=== PATIENT | female | born 1970 | race Caucasian/White ===

== ENCOUNTER 2020-09-20 09:09 | Inpatient (IN) | payer OTHER, SELFPAY ==
[2020-09-20] VITALS (33 sets, daily range): BP systolic 107–167; BP diastolic 59–83; PULSE 63–98; RESP 14–31; TEMP 35.8–37.1; O2SAT 93–100
--- NOTE | 2020-09-20 09:13 | W.ED.GENAD ---
Discharge Plan Disposition Patient [facility] Condition: Good Discharge Details Clinical Impression: Umbilical hernia, incarcerated Admit Date/Time: 09/20/20 15:59 Admit Provider: Kylie Vidal Attending Provider: Kylie Vidal Primary Care Provider: Anne Akers ED Provider: Serge Nuñez Discharge Data Discharge Date/Time-TO BE ENTERED AT DEPARTURE: 09/20/20 12:02 Medical Decision Making <TRISTON Morrison - Last Filed: 09/20/20 11:57> 50-year-old female history of GERD, anemia, asthma, presenting to the ER presenting to the ER with nausea for the last couple days, awoke this morning with severe abdominal pain. She had 1 episode of vomiting. She certainly appears uncomfortable. Examination reveals diffuse abdominal pain however examination is difficult given her body habitus. Differential is broad which includes gastritis, bowel obstruction, hernia, appendicitis, UTI, pyelonephritis, renal stone, biliary colic, etc. Will obtain IV access, give IV fluids, Zofran, morphine, lactic acid, CBC, CMP, urinalysis, urine and lipase. Patient reports nausea improved however the pain has not improved, now given 1 mg IV Dilaudid. Laboratory values are unremarkable for any obvious emergent process. Both her white blood cell count and lactate are unremarkable. Urinalysis reveals greater than 50 white cells however to be contaminated. Will obtain another sample. Repeat urinalysis without obvious signs of infection. Urine culture pending. Patient required a another dose of IV Dilaudid for her ongoing returning discomfort. CT imaging reveals an entrapped bowel loop in a umbilical hernia. Patient will be placed in Trendelenburg and will place ice on her abdomen. Given her evaluation-body habitus, etc., I feel as though it would be difficult to reduce this hernia here in the ER. I have placed a call to our surgical team. I spoke with Dr. Vidal, she reviewed the CT imaging and has set the patient up for surgery today at [address] Peña personally saw the patient, please see his note Medical Records Medical records reviewed: Yes I reviewed the patient's medical records. Imaging Data Radiologic Study: Attestation: I personally reviewed and interpreted this imaging study as follows: Imaging: CT Scan Radiologist's impression: CT abdomen and pelvis with contrast read by radiology as a significant anterior abdominal wall umbilical hernia which contains entrapped bowel loops with some surrounding fluid. Surgical consultation is recommended. There is no high-grade bowel obstruction at this time. Lab Data Lab results reviewed: Yes I reviewed the patient's lab results. Labs: 09/20/20 10:56 Urine - Reflex from Ua Urine Culture - Pending Laboratory Tests Range/Units 09/20/20 09/20/20 09/20/20 09:20 09:20 09:20 WBC (4.4-10.8) 10^3/uL 9.20 RBC (3.93-5.22) 10^6/uL 5.14 Hgb (11.2-15.7) g/dL 13.6 Hct (36.0-46.0) % 43.1 MCV (80-95) fL 83.9 MCH (27.0-33.0) pg 26.5 L MCHC (32.0-36.0) % 31.6 L RDW (11.7-14.6) % 13.5 Plt Count (130-400) 10^3/uL 295 MPV (8.0-11.0) fL 10.8 Immature Gran % 0.4 Neutrophils % 62.8 Lymphocytes % 27.3 Monocytes % 7.0 Eosinophils % 2.2 Basophils % 0.3 Nucleated RBC % % 0 Absolute Neutrophils (1.2-6.7) 10^3/uL 5.78 Absolute Lymphocytes (1.2-3.4) 10^3/uL 2.51 Absolute Monocytes (0.1-0.8) 10^3/uL 0.64 Absolute Eosinophils (0.0-0.7) 10^3/uL 0.20 Absolute Basophils (0.0-0.2) 10^3/uL 0.03 PT (9.3-11.0) sec INR (0.9-1.1) VBG Lactate (0.6-1.4) mmol/L 1.3 Sodium (136-145) mmol/L 137 Potassium (3.5-5.1) mmol/L 3.7 Chloride (98-107) mmol/L 104 Carbon Dioxide (21.0-32.0) mmol/L 24.5 Anion Gap (3-11) mmol/L 8.5 BUN (7-18) mg/dL 12 Creatinine (0.55-1.02) mg/dL 0.82 Estimated GFR/1.73 m2 (mL/min/1.73m2) >= 60.00 Glucose (74-106) mg/dL 116 H Calcium (8.5-10.1) mg/dL 8.8 Total Bilirubin (0.2-1.0) mg/dL 0.5 AST (15-37) U/L 16 ALT (14-59) U/L 30 Alkaline Phosphatase (46-116) U/L 64 Total Protein (6.4-8.2) g/dL 8.0 Albumin (3.4-5.0) g/dL 3.9 Lipase (73-393) U/L 62 Urine Color (Yellow) Urine Clarity (Clear) Urine pH (5-8) Ur Specific [place] (1.005-1.025) Urine Protein (Negative) mg/dL Urine Ketones (Negative) mg/dL Urine Blood (Negative) Urine Nitrite (Negative) Urine Bilirubin (Negative) Urine Urobilinogen (Up TO 0.2) EU/dL Ur Leukocyte Esterase (Negative) Urine RBC (0-2) HPF Urine WBC (0-5) HPF Ur Epithelial Cells (Negative) HPF Urine Crystals (Negative) HPF Urine Bacteria (Negative) HPF Urine Casts (Negative) LPF Urine Mucus (Negative) Urine Other (Negative) Ur Culture Indicated? Urine Glucose (Negative) mg/dL Range/Units 09/20/20 09/20/20 09/20/20 09:20 09:40 10:56 WBC (4.4-10.8) 10^3/uL RBC (3.93-5.22) 10^6/uL Hgb (11.2-15.7) g/dL Hct (36.0-46.0) % MCV (80-95) fL MCH (27.0-33.0) pg MCHC (32.0-36.0) % RDW (11.7-14.6) % Plt Count (130-400) 10^3/uL MPV (8.0-11.0) fL Immature Gran % Neutrophils % Lymphocytes % Monocytes % Eosinophils % Basophils % Nucleated RBC % % Absolute Neutrophils (1.2-6.7) 10^3/uL Absolute Lymphocytes (1.2-3.4) 10^3/uL Absolute Monocytes (0.1-0.8) 10^3/uL Absolute Eosinophils (0.0-0.7) 10^3/uL Absolute Basophils (0.0-0.2) 10^3/uL PT (9.3-11.0) sec 9.9 INR (0.9-1.1) 1.0 VBG Lactate (0.6-1.4) mmol/L Sodium (136-145) mmol/L Potassium (3.5-5.1) mmol/L Chloride (98-107) mmol/L Carbon Dioxide (21.0-32.0) mmol/L Anion Gap (3-11) mmol/L BUN (7-18) mg/dL Creatinine (0.55-1.02) mg/dL Estimated GFR/1.73 m2 (mL/min/1.73m2) Glucose (74-106) mg/dL Calcium (8.5-10.1) mg/dL Total Bilirubin (0.2-1.0) mg/dL AST (15-37) U/L ALT (14-59) U/L Alkaline Phosphatase (46-116) U/L Total Protein (6.4-8.2) g/dL Albumin (3.4-5.0) g/dL Lipase (73-393) U/L Urine Color (Yellow) Yellow Yellow Urine Clarity (Clear) Clear Clear Urine pH (5-8) 5.5 5.0 Ur Specific [place] (1.005-1.025) >= 1.030 H 1.010 Urine Protein (Negative) mg/dL Negative Negative Urine Ketones (Negative) mg/dL Negative Negative Urine Blood (Negative) Trace-intact H Trace-intact H Urine Nitrite (Negative) Negative Negative Urine Bilirubin (Negative) Negative Negative Urine Urobilinogen (Up TO 0.2) EU/dL 0.2 0.2 Ur Leukocyte Esterase (Negative) Negative Negative Urine RBC (0-2) HPF 5-10 H 0-2 Urine WBC (0-5) HPF >50 H 5-10 Ur Epithelial Cells (Negative) HPF Moderate Few Urine Crystals (Negative) HPF Negative Negative Urine Bacteria (Negative) HPF Many Moderate Urine Casts (Negative) LPF Negative Negative Urine Mucus (Negative) Heavy Heavy Urine Other (Negative) Negative Negative Ur Culture Indicated? No/sq. contamination Yes Urine Glucose (Negative) mg/dL Negative Negative <Washington Peña MD - Last Filed: 10/06/20 17:32> Patient seen, examined, and discussed with TRISTON Nuñez. I agree with treatment plan as discussed/documented. Surgical consult initiated by Dr. Vidal with plan to likely operate. HPI <TRISTON Morrison - Last Filed: 09/20/20 11:57> General Mode of arrival: ambulatory. Date/Time Provider Initiated Documentation: 09/20/20 09:10. Limitations to Documentation: no limitations. Information obtained by: patient. HPI Narrative: This is a 50-year-old female with past medical history that includes GERD, anemia, obesity, hyperlipidemia, asthma, cardiomegaly, presenting to the ER for evaluation of abdominal pain. She states that she has felt slightly nauseous for the past couple of days but has been able to eat regularly. She went to bed last night without any pain, will this morning with diffuse abdominal pain, difficult to pinpoint any specific location. She states the pain is moderate-severe, worse with movement. She states that radiate through into her back but not necessarily over to her flank. She did vomit once today. She tells me that she had a normal bowel movement this morning. Denies any obvious blood in her stools or black tarry stools. Patient denies recent sick contacts, bad food exposure, recent antibiotic use. Denies headache, fever, neck pain, chest pain, shortness of breath, diarrhea, constipation, dysuria, hematuria, abnormal vaginal bleeding or discharge. She states that her last menstrual cycle was approximately 1 month ago. She is sexually active with 1 person, her spouse. Denies history of previous abdominal surgeries. She denies alcohol use or smoking. Denies drug use. Related Data Home Medications Medication Instructions Recorded Confirmed cholecalciferol (vitamin D3) 2,000 units PO DAILY 07/11/15 09/20/20 magnesium oxide 500 mg PO DAILY 12/20/15 09/20/20 budesonide-formoterol HFA 160 2 puff INHALATION BID #1 inhaler 11/07/19 09/20/20 mcg-4.5 mcg/actuation aerosol inhaler acetaminophen [Mapap Extra 1,000 mg PO Q6H PRN #30 tab 09/21/20 Strength] docusate sodium [Colace] 100 mg PO BID #30 cap 09/21/20 oxycodone 5 mg PO Q4H PRN PRN #14 tab 09/21/20 Previous Rx's Medication Instructions Recorded budesonide-formoterol HFA 160 2 puff INHALATION BID #1 inhaler 11/07/19 mcg-4.5 mcg/actuation aerosol inhaler acetaminophen [Mapap Extra 1,000 mg PO Q6H PRN #30 tab 09/21/20 Strength] docusate sodium [Colace] 100 mg PO BID #30 cap 09/21/20 oxycodone 5 mg PO Q4H PRN PRN #14 tab 09/21/20 Allergies Allergy/AdvReac Type Severity Reaction Status Date / Time DUST Allergy Unknown Uncoded 10/04/20 13:55 POLLEN EXTRACTS Allergy Unknown Uncoded 10/04/20 13:55 Review of Systems <TRISTON Morrison - Last Filed: 09/20/20 11:57> Constitutional Constitutional: Denies fatigue, Denies fever(s), Denies headache(s) and Denies weakness ENT Ears, Nose, Mouth, and Throat: Denies headache(s) and Denies neck pain Cardiovascular Cardiovascular: Denies chest pain and Denies dyspnea Respiratory Respiratory: Denies cough and Denies dyspnea Gastrointestinal Gastrointestinal: Reports abdominal pain, Denies melena, Denies hematochezia, Denies constipation, Denies diarrhea, Reports nausea and Reports vomiting Genitourinary Genitourinary: Denies abnormal vaginal bleeding, Denies dysuria and Denies vaginal discharge Musculoskeletal Musculoskeletal: Reports back pain, Denies neck pain, Denies numbness and Denies tingling Integumentary/Breasts Skin/Breast: Denies rash Neurologic Neurologic: Denies headache(s), Denies numbness, Denies tingling and Denies weakness Endocrine Endocrine: Denies fatigue PFSH <TRISTON Morrison - Last Filed: 09/20/20 11:57> Medical History (Updated 09/21/20 @ 14:48 by Samantha Nascimento MD) Abdominal pain, epigastric Anemia Asthma PFT's 11/2009-normal Cardiomegaly (09/05/14) CXR-NORMAL ECHO 09/05/14 DR. WONG Depressive disorder GERD (gastroesophageal reflux disease) Hyperlipidemia Increased BMI Irregular periods (07/23/90) Rosacea Vitamin D deficiency (08/28/14) Family History Mother Essential hypertension Heart disease A fib Neoplasm SKIN/FACE Father Essential hypertension Heart disease Aortic stenosis Hyperlipidemia COPD (chronic obstructive pulmonary disease) Sister Diabetes Gestational diabetes Asthma Mild Brother Asthma Childhood Grandfather Heart disease Grandfather Heart disease Stroke Grandmother Essential hypertension Asthma Grandmother Heart disease Hyperlipidemia Brother No problems noted. 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 [employer] Pets and animals: Yes Pets and animals: cat(s) Duration: 15-30 minutes/day Frequency: 3-4 times per week Carmencita/[employer]: [employer] Special carmencita needs: No Seatbelt use: always Do you feel safe at home: Yes Do you feel safe in your relationship?: Yes Exam <TRISTON Morrison - Last Filed: 09/20/20 11:57> Const General: cooperative, healthy appearing, in distress and other (Appears uncomfortable, groaning) Orientation: alert and awake HENMT Head: normal to inspection, normocephalic and atraumatic Eyes General: appearance normal, both eyes and all related structures Conjunctivae: conjunctivae normal Sclera: sclerae normal Neck Neck: normal visual inspection, full ROM, no meningeal signs, trachea midline and supple Resp Effort & Inspection: normal respiratory effort and able to speak in complete sentences Auscultation: clear to auscultation bilaterally Cardio Rate: regular rate Rhythm: regular rhythm GI Inspection: normal to inspection and obesity Palpation: soft, not firm, no guarding, no pulsatile masses and tender (Diffuse, mild) Hogan's sign negative and with no rebound tenderness Auscultation: normal bowel sounds Back/Spine/Pelvis Back: No back tenderness Skin General skin exam: no rashes or lesions noted Neuro General: patient alert, patient awake, moves all extremities and no focal motor deficits Cognition: normal cognition Speech: speech normal Sensory Exam: no sensory deficits noted Extrem General: normal to inspection and full ROM Psych Appearance: grossly normal Mental Status: mental status grossly normal
[2020-09-20 09:36] LABS: Lactate 1.3 mmol/L (0.6-1.4)
[2020-09-20 09:41] LABS: Abs Immature Grans 0.04 10^3/uL (0.0-0.06); Absolute Basophil Count 0.03 10^3/uL (0.0-0.2); Absolute Lymphocyte Count 2.51 10^3/uL (1.2-3.4); Absolute Monocyte Count 0.64 10^3/uL (0.1-0.8); Absolute Neutrophil Count 5.78 10^3/uL (1.2-6.7); Basophils % 0.3; Eosinophils % 2.2; HCT 43.1 % (36.0-46.0); HGB 13.6 g/dL (11.2-15.7); Immature Grans % 0.4; Lymphocytes % 27.3; MCH 26.5 pg (27.0-33.0); MCHC 31.6 % (32.0-36.0); MCV 83.9 fL (80-95); MPV 10.8 fL (8.0-11.0); Neutrophils % 62.8; Nucleated RBC 0 %; Platelet Count 295 10^3/uL (130-400); RBC 5.14 10^6/uL (3.93-5.22); RDW 13.5 % (11.7-14.6); RDW-SD 41.5 fL
[2020-09-20] MEDS: MORPHine 10 MG/ML VIAL 2 MG IVP (09:43)
[2020-09-20] MEDS: Normal Saline 1,000 ML 1000 ML IV ×2 (09:43→10:40)
[2020-09-20] MEDS: Ondansetron 4 MG/2 ML VIAL IVP (09:43)
[2020-09-20] MEDS: Normal Saline Flush 10 ML SYR IVP ×4 (09:44→18:47)
[2020-09-20 09:48] LABS: Prothrombin Time 9.9 sec (9.3-11.0)
[2020-09-20 09:50] LABS: Bilirubin Negative (Negative); Blood Trace-intact (Negative); Clarity Clear (Clear); Glucose Negative (Negative); Ketones Negative (Negative); Leukocyte Esterase Negative (Negative); Nitrite Negative (Negative); Specific Gravity >= 1.030 (1.005-1.025); Urobilinogen 0.2 EU/dL (Up TO 0.2); pH 5.5 (5-8)
[2020-09-20] MEDS: HYDROmorphone 2 MG/ML VIAL 1 MG IVP ×2 (10:02→10:57)
[2020-09-20 10:05] LABS: ALT 30 U/L (14-59); AST 16 U/L (15-37); Albumin 3.9 g/dL (3.4-5.0); Alkaline Phosphatase 64 U/L (46-116); Anion Gap 8.5 mmol/L (3-11); BUN 12 mg/dL (7-18); Bilirubin, Total 0.5 mg/dL (0.2-1.0); CO2 24.5 mmol/L (21.0-32.0); CREATININE 0.82 mg/dL (0.55-1.02); Calcium 8.8 mg/dL (8.5-10.1); Chloride 104 mmol/L (98-107); Glucose 116 mg/dL (74-106); Lipase 62 U/L (73-393); Potassium 3.7 mmol/L (3.5-5.1); Sodium 137 mmol/L (136-145)
[2020-09-20 10:21] LABS: Bacteria Many HPF (Negative); Crystals Negative HPF (Negative); Epithelial Cells Moderate HPF (Negative); Other Cells Negative (Negative); WBC >50 HPF (0-5)
[2020-09-20 10:22] LABS: C & S Indicated? No/Sq. Contamination; Casts Negative LPF (Negative); Mucus Heavy (Negative)
--- NOTE | 2020-09-20 10:37 | DI.CT_ITS ---
EXAM: CT ABDOMEN PELVIS W CLINICAL HISTORY: nausea x 2 days, diffuse pain this a.m.. TECHNIQUE: Imaging Protocol: Axial computed tomography images with coronal and sagittal reformatted images were created and reviewed CONTRAST MATERIAL: Intravenous: Omnipaque 100cc Oral: None COMPARISON: No exams were available for comparison FINDINGS: VISUALIZED LUNG BASES: No nodules nor pleural effusions evident. ABDOMEN: Is no ascites. LIVER: Liver is hypodense implying steatosis. There are no discrete focal hepatic lesions. GALLBLADDER/BILIARY: No obvious gallbladder pathology. CBD is not dilated. PANCREAS: No evidence of pancreatic mass nor dilatation of the pancreatic duct. SPLEEN: Spleen is not enlarged. No obvious intrasplenic lesions. Splenic and portal veins are paten t. ADRENALS: There are no significant adrenal masses. KIDNEYS:Right kidney is unremarkable. Small cyst is noted in the lateral cortex of the left kidney. No solid renal masses. No calculi nor hydronephrosis.. ABDOMINAL AORTA: Abdominal aorta is not enlarged and there is no [id number] adenopat hy. ABDOMINAL WALL/GI: There is an anterior abdominal wall umbilical hernia which contains entrapped eusebio l loop and surrounding streaking. There is no prominent bowel obstruction. No obvious free air. PELVIS: GI: No evidence of appendicitis.No evidence of sigmoid diverticulitis. LYMPH NODES: There is no intrapelvic nor inguinal adenopathy. REPRODUCTIVE: Uterus and adnexal regions appear age-appropriate. No free fluid in the cul-de-sac. URINARY BLADDER: No calculi nor obvious masses evident OSSEOUS: No significant osseous lesions. IMPRESSION: 1. Main finding here is a significant anterior abdominal wall umbilical hernia which contains entrapp ed bowel loops with some surrounding fluid. Surgical consultation is recommended. There is no high- grade bowel obstruction at this time. 2. Hepatic steatosis. No ominous focal hepatic lesions. No ascites. RADIATION DOSE DELIVERED: 1,686.4mGy.cm Total DLP DATA REPOSITORY: All CT scans at this facility are submitted to the National Radiology Data Registry (NRDR) Dose Index Registry (DIR) with the [employer] ([employer]). RADIATION OPTIMIZATION: All CT scans at this facility use at least one of these dose optimization te chniques: automated exposure control; mA and/or kV adjustment per patient size (includes targeted exa ms where dose is matched to clinical indication); or iterative reconstruction.
[2020-09-20] MEDS: Omnipaque 350 MG/ML 100 ML BTL IJ (10:39)
[2020-09-20] MEDS: Normal Saline - Diluent 50 ML VIAL IV (10:40)
[2020-09-20 11:04] LABS: Bilirubin Negative (Negative); Blood Trace-intact (Negative); Clarity Clear (Clear); Glucose Negative (Negative); Ketones Negative (Negative); Leukocyte Esterase Negative (Negative); Nitrite Negative (Negative); Urobilinogen 0.2 EU/dL (Up TO 0.2)
[2020-09-20 11:12] LABS: Bacteria Moderate HPF (Negative); C & S Indicated? Yes; Casts Negative LPF (Negative); Crystals Negative HPF (Negative); Epithelial Cells Few HPF (Negative); Mucus Heavy (Negative); Other Cells Negative (Negative); RBC 0-2 HPF (0-2)
[2020-09-20] MEDS: Lactated Ringers 1,000 ML 120 ML IV (12:44)
--- NOTE | 2020-09-20 13:32 | HPE_ITS ---
Date of service: 09/20/20 Time of Service: 13:32 Assessment and Plan Assessment and plan (1) Umbilical hernia, incarcerated: Status: Acute Assessment and plan: She has an obvious incarceration with bowel. I did review her CT and her CBC ,complete metabolic profile. She does need to go for surgery. I discussed the procedure which she could expect during the procedure, recovery time, and risks. Risks include but are not limited to: Bleeding, infection, pneumonia, blood clots, complications from anesthesia. We may or may not have to do a bowel resection. If we do a bowel resection we cannot place the mesh and the risks of the hernia recurring are high. If we can place the mesh there is always risks of infection or rejection of the mesh and having to mesh removed. There is always risks of chronic pain or chronic numbness. Because of her obesity she has a high risk wound breakdown/ problems and need to heal by secondary intent. She will have drains in place. We will admit her after the procedure. Further recommendations to follow based on findings at the time of surgery. I did a review her care with anesthesia and do feel she is acceptable risk to have her surgery done here at [facility]. She will be admitted post procedure. 50 minutes spent with the patient in preop. Reviewing her CTs her lab work and her medical history in chart. Discussing the case with anesthesia. Discussing the case with the patient and preparing her This document was created using voice activated software and may contain errors (2) GERD (gastroesophageal reflux disease): Status: Chronic Qualifiers: Esophagitis presence: without esophagitis Qualified Code(s): K21.9 - Gastro-esophageal reflux disease without esophagitis (3) Hyperlipidemia: Status: Acute (4) Asthma: Status: Acute History of Present Illness Consults Consult date: 09/20/20 Narrative: Pt not been feeling well for the past 36 hrs. Today she woke up w/ severe pain. She denies any healthy lifting or trauma in the past 24 hrs. She had a L inguinal fixed in the past. +N/V today. No prior surgerys through this area. Last time she had a physical, she was told her there was something funny about the area, but it was nothing to worry about. I think she has had an umbilical hernia for some time. But she has never had any pain or problems with it before. She is not had any prior bowel surgery before. She is not a smoker. She is not diabetic. She has anemia listed on her past medical history. She is not anemic today on her CBC. She has cardiomegaly listed on her past medical history. She did have any echo in 2015 that showed normal size, no hypertrophy and normal function, normal valves. She is not a smoker. She is not diabetic. She does have problems with GERD. The hernia is firm, very painful. There is no erythema. There is no drainage. She has been vomiting today. Is obviously incarcerated and she needs to go for surgery. Right and that is more of a physiological problem. Not an anatomical problem Review of Systems All systems reviewed & are unremarkable except as noted in HPI and below PFSH Family History Mother Essential hypertension Heart disease A fib Neoplasm SKIN/FACE Father Essential hypertension Heart disease Aortic stenosis Hyperlipidemia COPD (chronic obstructive pulmonary disease) Sister Diabetes Gestational diabetes Asthma Mild Brother Asthma Childhood Grandfather Heart disease Grandfather Heart disease Stroke Grandmother Essential hypertension Asthma Grandmother Heart disease Hyperlipidemia Brother No problems noted. 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 [employer] Pets and animals: Yes Pets and animals: cat(s) Duration: 15-30 minutes/day Frequency: 3-4 times per week Carmencita/Denominational: Confucianist Special carmencita needs: No Seatbelt use: always Do you feel safe at home: Yes Do you feel safe in your relationship?: Yes Meds Home Medications and Allergies Home Medications Medication Instructions Recorded Confirmed Type cholecalciferol (vitamin D3) 2,000 units PO DAILY 07/11/15 09/20/20 History magnesium oxide 500 mg PO DAILY 12/20/15 09/20/20 History budesonide-formoterol HFA 160 2 puff INHALATION BID #1 inhaler 11/07/19 09/20/20 Rx mcg-4.5 mcg/actuation aerosol inhaler Allergies Allergy/AdvReac Type Severity Reaction Status Date / Time DUST Allergy Unknown Uncoded 09/20/20 12:16 POLLEN EXTRACTS Allergy Unknown Uncoded 09/20/20 12:16 Exam Const General: cooperative, healthy appearing, comfortable, no acute distress, well developed and well groomed Nutritional Appearance: average body habitus and well nourished Orientation: alert, awake and oriented x3 [facility] Head: normal to inspection, normocephalic and atraumatic Ears: hearing grossly normal bilaterally and external ears normal General nose exam: external nose normal Face and sinus: normal facial exam and sinuses nontender Mouth: oral mucosae normal, lip normal, tongue normal and moist mucous membranes Teeth and gingiva: dentition normal Eyes General: appearance normal, both eyes and all related structures Conjunctivae: conjunctivae normal Sclera: sclerae normal Pupils: PERRL Neck Neck: normal visual inspection and full ROM Chest Chest: normal inspection of the chest Resp Effort & Inspection: normal respiratory effort, able to speak in complete sentences, no cough, no nasal flaring, not tachypneic and no use of accessory muscles Auscultation: clear to auscultation bilaterally, no rales, no rhonchi and no wheezes Cardio Jugular venous pressure: no JVD Rate: regular rate Rhythm: regular rhythm GI Inspection: normal to inspection, no edema, non-distended and obesity Palpation: mass, tender and No ascites Auscultation: hypoactive bowel sounds Other: Abdomen is obese. She is a hard nodule at the umbilical region that is exquisitely tender. There is no redness. There is no drainage. Bowel sounds are hypoactive. Skin General skin exam: no rashes or lesions noted Trauma: no lacerations or abrasions Neuro General: patient alert, patient oriented x3, oriented, gait normal, moves all extremities, no focal motor deficits and CN's II-XI intact bilaterally Cognition: normal cognition Speech: speech normal Gait: normal gait Motor: muscle tone normal throughout Extrem General: normal to inspection, full ROM and no clubbing, cyanosis or edema Psych Appearance: grossly normal and well kempt Mental Status: mental status grossly normal Speech and Movement: speech and movement normal Affect: normal affect Results Labs Result diagrams: 09/20/20 09:20 09/20/20 09:20 Labs: Laboratory Results - last 24 hr 09/20/20 09/20/20 09/20/20 09:20 09:20 09:20 WBC 9.20 RBC 5.14 Hgb 13.6 Hct 43.1 MCV 83.9 MCH 26.5 L MCHC 31.6 L RDW 13.5 Plt Count 295 MPV 10.8 Immature Gran % 0.4 Neutrophils % 62.8 Lymphocytes % 27.3 Monocytes % 7.0 Eosinophils % 2.2 Basophils % 0.3 Nucleated RBC % 0 Absolute Neutrophils 5.78 Absolute Lymphocytes 2.51 Absolute Monocytes 0.64 Absolute Eosinophils 0.20 Absolute Basophils 0.03 PT INR VBG Lactate 1.3 Sodium 137 Potassium 3.7 Chloride 104 Carbon Dioxide 24.5 Anion Gap 8.5 BUN 12 Creatinine 0.82 Estimated GFR/1.73 m2 >= 60.00 Glucose 116 H Calcium 8.8 Total Bilirubin 0.5 AST 16 ALT 30 Alkaline Phosphatase 64 Total Protein 8.0 Albumin 3.9 Lipase 62 Urine Color Urine Clarity Urine pH Ur Specific [place] Urine Protein Urine Ketones Urine Blood Urine Nitrite Urine Bilirubin Urine Urobilinogen Ur Leukocyte Esterase Urine RBC Urine WBC Ur Epithelial Cells Urine Crystals Urine Bacteria Urine Casts Urine Mucus Urine Other Ur Culture Indicated? Urine Glucose 09/20/20 09/20/20 09/20/20 09:20 09:40 10:56 WBC RBC Hgb Hct MCV MCH MCHC RDW Plt Count MPV Immature Gran % Neutrophils % Lymphocytes % Monocytes % Eosinophils % Basophils % Nucleated RBC % Absolute Neutrophils Absolute Lymphocytes Absolute Monocytes Absolute Eosinophils Absolute Basophils PT 9.9 INR 1.0 VBG Lactate Sodium Potassium Chloride Carbon Dioxide Anion Gap BUN Creatinine Estimated GFR/1.73 m2 Glucose Calcium Total Bilirubin AST ALT Alkaline Phosphatase Total Protein Albumin Lipase Urine Color Yellow Yellow Urine Clarity Clear Clear Urine pH 5.5 5.0 Ur Specific [place] >= 1.030 H 1.010 Urine Protein Negative Negative Urine Ketones Negative Negative Urine Blood Trace-intact H Trace-intact H Urine Nitrite Negative Negative Urine Bilirubin Negative Negative Urine Urobilinogen 0.2 0.2 Ur Leukocyte Esterase Negative Negative Urine RBC 5-10 H 0-2 Urine WBC >50 H 5-10 Ur Epithelial Cells Moderate Few Urine Crystals Negative Negative Urine Bacteria Many Moderate Urine Casts Negative Negative Urine Mucus Heavy Heavy Urine Other Negative Negative Ur Culture Indicated? No/sq. contamination Yes Urine Glucose Negative Negative Last Vital Signs Temp 36.5 C 09/20/20 12:25 Pulse 76 09/20/20 12:25 Resp 20 09/20/20 12:25 BP 126/69 09/20/20 12:25 Pulse Ox 93 09/20/20 12:25 COVID-19 Screening Have you, or household traveled for leisure in last 14 days?: No Had IN PERSON contact w/suspected or confirmed C-19 person: No
[2020-09-20] MEDS: Bupivacaine 0.5% Pres-Free 30 ML VIAL (14:01)
[2020-09-20] MEDS: PIPERACILLIN/TAZO 4.5 GM in Normal Saline 100 ML IVPB (14:14)
[2020-09-20] MEDS: Bupivacaine 0.25% Pres-Free 30 ML VIAL ×2 (14:30→14:32)
--- NOTE | 2020-09-20 16:11 | W.PM.OP ---
Date of service: 09/20/20 Time of Service: 16:11 Operative Note Operative Note DATE OF PROCEDURE: 09/20/20 PRE-OP DIAGNOSIS: incarcerated umbilical hernia w/ bowel POST-OP DIAGNOSIS: other (w/ omentum ) PROCEDURE: open umbilical hernia w/ mesh. partial excision of omentum SURGEON: Kylie Vidal COUNTERINTELLIGENCE/HUMINT SPECIALIST: Bibiana Rodriguez ANESTHESIA: GETA, regional and local ESTIMATED BLOOD LOSS: 5 PATHOLOGY: none sent Patient was transported to: PACU Patient's condition: stable Implants: see RN notes Procedure Description: Alondra Sterling is a 42-year-old female who presented to the emergency department with signs and symptoms of incarcerated umbilical hernia this was confirmed with CT scan. She is being brought to the OR for emergent surgery. A informed consent is obtained explaining risks and benefits of procedure including not limited to bleeding, infection, pneumonia, blood clots. Chronic pain or chronic numbness. Recurrence. Possible bowel resection. Reaction to the mesh. Complications of anesthesia. Wound healing because of her diabetes and BMI. And other unforetold complications. Patient is brought to the operative room suite placed supine position. Anesthesia is administered per the department of anesthesia. Patient is prepped and draped in the usual sterile fashion using a Betadine scrub solution. She did receive preop antibiotics. Timeout is performed. #10 blade is used to make a 3 inch incision over the umbilicus. Electrocautery used to provide hemostasis and dissect down to the tissues. The hernia sacs encountered and opened up. It only contains omentum at this point. The omentum is slightly dusky. The omentum and the hernia sac are excised using the LigaSure. There is no bleeding noted. The bowel appears pink and healthy. The defect is closed with 2-0 vicryl. the defect Is approximately 2 inches in size. a 4 x 6 3 inch piece of polyppropalene mesh is placed over top of the fascia is a onlay graft ,and sewn in with 2-0 Vicryl. The wound was then irrigated. Deep tissues approximated with 3-0 Vicryl. Subcutaneous tissues approximated with 3-0 Vicryl and skin is approximated with ron. No drain is placed. Sponge and needle counts are correct. Instrument counts are correct. Sterile compression dressings applied. Patient tolerated the procedure well without complication transferred recovery in stable condition. She will be admitted overnight. This document was created using voice activated software and may contain errors.
[2020-09-20] MEDS: Normal Saline 1,000 ML 100 ML IV (17:18)
[2020-09-20] MEDS: Acetaminophen 500 MG TAB 1000 MG PO ×2 (18:45→23:22)
[2020-09-20] MEDS: Pantoprazole 40 MG VIAL IVP (18:46)
[2020-09-20] MEDS: Docusate Sodium 100 MG CAP PO (20:09)
[2020-09-20] MEDS: Budesonide/Formoterol 160/4.5 6 GM 60 PUFF INH IH (20:09)
[2020-09-20 21:10] LABS: COVID-19 RT-PCR UVMMC Result Negative (Negative)
[2020-09-20] MEDS: Ketorolac 30 MG/ML VIAL IVP (21:43)
--- NOTE | 2020-09-20 22:28 | W.PM.PROGNOT ---
Date of Service Date of service: 09/20/20 Time of Service: 20:00 Subjective Subjective Interval history since last seen: The patient is doing well post-op. Their pain is well controlled. They are having no nausea or vomiting. The pt is not having any chest pain or SOB, productive cough; no calf pain or swelling. The pt is making good urine. The pt pain is adequately controlled. The case was discussed with nursing and patients progress reviewed. All of the pt's home medications were addressed and adjusted accordingly for their oral intact status. Patient is doing well she is up and walking around. She feels her pain is well controlled. She would like to get her Figueroa catheter removed at this time. If she wants it out she can have it out. I encouraged her to continue walking and to continue with pulmonary toilet. Anticipate that she will go home tomorrow. She did not require a drain HEENT: no jaundice. no eye pain/drainage/redness/swelling. mild sore throat cardio- NSR no chest pain, BP stable. pulm: no sob or productive cough. no hemoptysis incision- clean/dry. dressing intact no excessive bleeding or drainage I discussed with the patient and/or their family about the findings in surgery and the pt's prognosis. We reviewed expectations for progress in the hospital; what the pt could expect for recovery time and length of stay. We discussed the importance of walking and pulmonary toilet to avoid blood clots and pneumonia. Continue current plans for pulmonary toilet, GI and DVT prophylaxis. We shall continue the current plan for pain management as it is at an appropriate level and working well for the pt. Appropriate measures will be taken for constipation prevention as well, and this was also reviewed with the pt. A wound care plan was reviewed with nursing as well. see orders Objective Last Vital Signs Temp 37.1 C 09/20/20 18:50 Pulse 98 H 09/20/20 18:50 Resp 16 09/20/20 18:50 BP 120/72 09/20/20 18:50 Pulse Ox 94 09/20/20 18:50 Laboratory Results - last 24 hr 09/20/20 09/20/20 09/20/20 09:20 09:20 09:20 WBC 9.20 RBC 5.14 Hgb 13.6 Hct 43.1 MCV 83.9 MCH 26.5 L MCHC 31.6 L RDW 13.5 Plt Count 295 MPV 10.8 Immature Gran % 0.4 Neutrophils % 62.8 Lymphocytes % 27.3 Monocytes % 7.0 Eosinophils % 2.2 Basophils % 0.3 Nucleated RBC % 0 Absolute Neutrophils 5.78 Absolute Lymphocytes 2.51 Absolute Monocytes 0.64 Absolute Eosinophils 0.20 Absolute Basophils 0.03 PT INR VBG Lactate 1.3 Sodium 137 Potassium 3.7 Chloride 104 Carbon Dioxide 24.5 Anion Gap 8.5 BUN 12 Creatinine 0.82 Estimated GFR/1.73 m2 >= 60.00 Glucose 116 H Calcium 8.8 Total Bilirubin 0.5 AST 16 ALT 30 Alkaline Phosphatase 64 Total Protein 8.0 Albumin 3.9 Lipase 62 Urine Color Urine Clarity Urine pH Ur Specific [place] Urine Protein Urine Ketones Urine Blood Urine Nitrite Urine Bilirubin Urine Urobilinogen Ur Leukocyte Esterase Urine RBC Urine WBC Ur Epithelial Cells Urine Crystals Urine Bacteria Urine Casts Urine Mucus Urine Other Ur Culture Indicated? Urine Glucose 09/20/20 09/20/20 09/20/20 09:20 09:40 10:56 WBC RBC Hgb Hct MCV MCH MCHC RDW Plt Count MPV Immature Gran % Neutrophils % Lymphocytes % Monocytes % Eosinophils % Basophils % Nucleated RBC % Absolute Neutrophils Absolute Lymphocytes Absolute Monocytes Absolute Eosinophils Absolute Basophils PT 9.9 INR 1.0 VBG Lactate Sodium Potassium Chloride Carbon Dioxide Anion Gap BUN Creatinine Estimated GFR/1.73 m2 Glucose Calcium Total Bilirubin AST ALT Alkaline Phosphatase Total Protein Albumin Lipase Urine Color Yellow Yellow Urine Clarity Clear Clear Urine pH 5.5 5.0 Ur Specific [place] >= 1.030 H 1.010 Urine Protein Negative Negative Urine Ketones Negative Negative Urine Blood Trace-intact H Trace-intact H Urine Nitrite Negative Negative Urine Bilirubin Negative Negative Urine Urobilinogen 0.2 0.2 Ur Leukocyte Esterase Negative Negative Urine RBC 5-10 H 0-2 Urine WBC >50 H 5-10 Ur Epithelial Cells Moderate Few Urine Crystals Negative Negative Urine Bacteria Many Moderate Urine Casts Negative Negative Urine Mucus Heavy Heavy Urine Other Negative Negative Ur Culture Indicated? No/sq. contamination Yes Urine Glucose Negative Negative
[2020-09-21] MEDS: oxyCODONE 5 MG TAB PO (00:05)
[2020-09-21] MEDS: Normal Saline 1,000 ML 100 ML IV (02:43)
[2020-09-21] MEDS: Ketorolac 30 MG/ML VIAL IVP ×3 (03:45→15:25)
[2020-09-21] MEDS: Acetaminophen 500 MG TAB 1000 MG PO ×2 (06:16→11:26)
[2020-09-21 07:06] VITALS: BP 105/63; PULSE 76; RESP 17; TEMP 37.3; O2SAT 97
[2020-09-21] MEDS: Docusate Sodium 100 MG CAP PO (07:58)
[2020-09-21] MEDS: Enoxaparin 40 MG/0.4 ML SYR SC (07:58)
--- NOTE | 2020-09-21 08:05 | PDOC.CMIN ---
- If Service Date Differs Date of service: 09/21/20 Time of Service: 16:31 Care Management Initial Assess REASON FOR HOSPITALIZATION:: Incarcerated umbilical hernia PAST MEDICAL HISTORY/PAST SURGICAL HISTORY:: anemia, cardiomegaly, GERD, L inguinal hernia repair PREVIOUS FUNCTIONAL STATUS/SOCIAL/FAMILY SUPPORTS:: Alondra resides in [facility] with her , Jr. 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 She is independent at baseline in the community. ADVANCE DIRECTIVES:: None on file. Has patient been provided with info about the portal/API?: Yes Did the patient sign up for the portal?: No CODE STATUS:: Full Code INSURANCE COVERAGE / FINANCIAL ISSUES:: [employer] CURRENT HOME/COMMUNITY SERVICES/EQUIPMENT:: None, currently. PRIMARY CARE PHYSICIAN:: Anne Akers NP-[facility]. POTENTIAL DISCHARGE NEEDS:: Follow up appointments. PATIENT/FAMILY EDUCATION NEEDS:: Review discharge instructions, discuss Ask Me Three. ANTICIPATED BARRIERS TO DISCHARGE:: None identified. TRANSPORTATION:: Via private vehicle with her . PLAN:: Alondra will return home when ready per MD. No additional services anticipated at this time. She will follow up with her PCP and plan of care as prescribed. She will transport via private vehicle with her , Jr.
--- NOTE | 2020-09-21 08:05 | W.PM.PROGNOT ---
Date of Service Date of service: 09/21/20 Time of Service: 08:05 Assessment and Plan Assessment and plan (1) Umbilical hernia, incarcerated: Status: Acute Assessment and plan: POD #1 s/p incarcerated umbilical hernia repair Figueroa removed this morning, she has not urinated yet. Pain is very well controlled, last pain med received at midnight for 4/10PL. Currently 0/10PL. Will trial clear liquid diet this morning, if this is tolerated will progress to soft, post-op diet. Ambulating within her room. Denies any chest pain, SOB or coughing. Once she is urinating without difficulty and tolerating soft diet, she can be d/c home. Most likely later today. Reviewed and discussed post-op precautions. 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 Will provide her with a work note regarding her return to work and restrictions. Will set up follow up appt in the office in 2 weeks. (2) GERD (gastroesophageal reflux disease): Status: Chronic Qualifiers: Esophagitis presence: without esophagitis Qualified Code(s): K21.9 - Gastro-esophageal reflux disease without esophagitis (3) Hyperlipidemia: Status: Acute (4) Asthma: Status: Acute Subjective Subjective Interval history since last seen: Patient reports feeling very well today. She states that currently she does not have any pain. She is eager to try breakfast. Exam Const General: cooperative, healthy appearing and comfortable Orientation: alert and oriented x3 Resp Effort & Inspection: normal respiratory effort, no audible wheezes and no cough Auscultation: clear to auscultation bilaterally GI Inspection: normal to inspection and incision (dressed with medi-pore tape. ) Palpation: soft, no guarding and tender (localized to surgical site ) Auscultation: normal bowel sounds Objective Last Vital Signs Temp 37.3 C 09/21/20 07:06 Pulse 76 09/21/20 07:06 Resp 17 09/21/20 07:06 BP 105/63 09/21/20 07:06 Pulse Ox 97 09/21/20 07:06 Laboratory Results - last 24 hr 09/20/20 09/20/20 09/20/20 09:20 09:20 09:20 WBC 9.20 RBC 5.14 Hgb 13.6 Hct 43.1 MCV 83.9 MCH 26.5 L MCHC 31.6 L RDW 13.5 Plt Count 295 MPV 10.8 Immature Gran % 0.4 Neutrophils % 62.8 Lymphocytes % 27.3 Monocytes % 7.0 Eosinophils % 2.2 Basophils % 0.3 Nucleated RBC % 0 Absolute Neutrophils 5.78 Absolute Lymphocytes 2.51 Absolute Monocytes 0.64 Absolute Eosinophils 0.20 Absolute Basophils 0.03 PT INR VBG Lactate 1.3 Sodium 137 Potassium 3.7 Chloride 104 Carbon Dioxide 24.5 Anion Gap 8.5 BUN 12 Creatinine 0.82 Estimated GFR/1.73 m2 >= 60.00 Glucose 116 H Calcium 8.8 Total Bilirubin 0.5 AST 16 ALT 30 Alkaline Phosphatase 64 Total Protein 8.0 Albumin 3.9 Lipase 62 Urine Color Urine Clarity Urine pH Ur Specific [place] Urine Protein Urine Ketones Urine Blood Urine Nitrite Urine Bilirubin Urine Urobilinogen Ur Leukocyte Esterase Urine RBC Urine WBC Ur Epithelial Cells Urine Crystals Urine Bacteria Urine Casts Urine Mucus Urine Other Ur Culture Indicated? Urine Glucose SARS-CoV-2 (PCR) Nasopharyn COVID-19 PCR Ref Test Perform Site 09/20/20 09/20/20 09/20/20 09:20 09:40 10:56 WBC RBC Hgb Hct MCV MCH MCHC RDW Plt Count MPV Immature Gran % Neutrophils % Lymphocytes % Monocytes % Eosinophils % Basophils % Nucleated RBC % Absolute Neutrophils Absolute Lymphocytes Absolute Monocytes Absolute Eosinophils Absolute Basophils PT 9.9 INR 1.0 VBG Lactate Sodium Potassium Chloride Carbon Dioxide Anion Gap BUN Creatinine Estimated GFR/1.73 m2 Glucose Calcium Total Bilirubin AST ALT Alkaline Phosphatase Total Protein Albumin Lipase Urine Color Yellow Yellow Urine Clarity Clear Clear Urine pH 5.5 5.0 Ur Specific [place] >= 1.030 H 1.010 Urine Protein Negative Negative Urine Ketones Negative Negative Urine Blood Trace-intact H Trace-intact H Urine Nitrite Negative Negative Urine Bilirubin Negative Negative Urine Urobilinogen 0.2 0.2 Ur Leukocyte Esterase Negative Negative Urine RBC 5-10 H 0-2 Urine WBC >50 H 5-10 Ur Epithelial Cells Moderate Few Urine Crystals Negative Negative Urine Bacteria Many Moderate Urine Casts Negative Negative Urine Mucus Heavy Heavy Urine Other Negative Negative Ur Culture Indicated? No/sq. contamination Yes Urine Glucose Negative Negative SARS-CoV-2 (PCR) Nasopharyn COVID-19 PCR Ref Test Perform Site 09/20/20 12:00 WBC RBC Hgb Hct MCV MCH MCHC RDW Plt Count MPV Immature Gran % Neutrophils % Lymphocytes % Monocytes % Eosinophils % Basophils % Nucleated RBC % Absolute Neutrophils Absolute Lymphocytes Absolute Monocytes Absolute Eosinophils Absolute Basophils PT INR VBG Lactate Sodium Potassium Chloride Carbon Dioxide Anion Gap BUN Creatinine Estimated GFR/1.73 m2 Glucose Calcium Total Bilirubin AST ALT Alkaline Phosphatase Total Protein Albumin Lipase Urine Color Urine Clarity Urine pH Ur Specific [place] Urine Protein Urine Ketones Urine Blood Urine Nitrite Urine Bilirubin Urine Urobilinogen Ur Leukocyte Esterase Urine RBC Urine WBC Ur Epithelial Cells Urine Crystals Urine Bacteria Urine Casts Urine Mucus Urine Other Ur Culture Indicated? Urine Glucose SARS-CoV-2 (PCR) Negative Nasopharyn COVID-19 PCR Not Applicable Ref Test Perform Site [facility]
[2020-09-21] MEDS: Budesonide/Formoterol 160/4.5 6 GM 60 PUFF INH IH (08:14)
--- NOTE | 2020-09-21 09:13 | W.PM.DS.N ---
Documented by User: TRISTON Grnat 09/21/20 09:19 Date of service: 09/21/20 Time of Service: 09:13 DS: Diagnosis Discharge Diagnosis (1) Umbilical hernia, incarcerated: Status: Acute (2) GERD (gastroesophageal reflux disease): Status: Inactive (3) Hyperlipidemia: Status: Inactive (4) Asthma: Status: Inactive Discharge Plan Disposition Patient Disposition: HOME Condition: Good Discharge Details Reason For Visit: INCARCERTATED UMBILICAL HERNIA Admit Date/Time: 09/20/20 15:59 Admit Provider: Kylie Vidal Attending Provider: Kylie Vidal Primary Care Provider: Anne Akers Hospital Course Hospital Course: 50 y/o female presented to the ER with nausea for a couple days and woke up the morning of 09/20 with severe abdominal pain. It was found on CT scan she had an incarcerated umbilical hernia with bowel loop. She was taken to the OR for an open umbilical hernia repair with mesh. She was admitted to med/surg for pain control and to ensure she tolerated a soft diet prior to d/c. Her pain was well controlled over night. Figueroa was d/c and she was able to urinate without difficulty. Reviewed and discussed signs and symptoms of infection to include fevers, chills, sweats, redness, soreness or swelling in the area, new onset pain or new onset/change in drainage. Patient verbalized understanding and will call this office, their PCP or go to the ER if any of these symptoms occur. D/C home and will schedule a follow up in the office in [address] Vidal. Home Meds and New Rx's Prescriptions: New acetaminophen [Mapap Extra Strength] 500 mg Tablet 1,000 mg PO Q6H PRN (Reason: fever or pain) Qty: 30 RF: 0 docusate sodium [Colace] 100 mg Capsule 100 mg PO BID Qty: 30 RF: 0 oxycodone 5 mg Tablet 5 mg PO Q4H PRN PRNQty: 14 RF: 0 Continued magnesium oxide 500 MG capsule 500 mg PO DAILY RF: 0 budesonide-formoterol [Symbicort] 160-4.5 mcg/actuation HFA aerosol inhaler 2 puff Inhalation BID Qty: 1 RF: 6 cholecalciferol (vitamin D3) 1,000 UNITS tablet 2,000 units PO DAILY RF: 0 Discharge Instructions Instructions: Umbilical Hernia (DC) Additional Instructions: No lifting pushing or pulling >10#. No strenuous bending or twisting for the next 6 weeks. She can return to work, while following these instructions starting Thursday, 2020. For pain control please take tylenol 650 mg x 6-8 hours and/or Ibuprofen 600mg x 6-8 hours. You may also use ice pack over your surgical site for pain control. No driving for 5 days OK to shower. No bathe/host tube Inc spirometry 10/ hour while awake. I do want you up walking 5-6 times per day to prevent pneumonia and blood clots. no restrictions on diet Pain medication and anesthesia can make you very constipated, but I do not want you straining to move your bowels. If you are experiencing constipation take some milk of magnesia magnesia Stand Alone Forms: Nursing Discharge Form Referrals: Kylie Vidal DO [OSTEOPATHIC DOCTOR] - 10/04/20 2:00 pm Activity:: Activity as Tolerated Equipment/Supplies:: No Equipment Needed Diet:: As Tolerated Discharge Orders Discharge Orders: Discharge Order (Routine); Ordered 09/21/20 Ordered By: Samantha Nascimento Discharge Data Discharge Date/Time-TO BE ENTERED AT DEPARTURE: 09/21/20 16:50 DS: Data Vitals/I&O Vitals and I&O: Vital Signs Temperature 37.3 C 09/21/20 07:06 Temperature Source Temporal Artery Scan 09/21/20 07:06 Pulse 76 09/21/20 07:06 Pulse Rhythm Regular 09/20/20 23:30 Pulse 92 H 09/20/20 11:50 Respiratory Rate 17 09/21/20 07:06 Respiratory Effort Non-Labored 09/20/20 23:30 Respiratory Depth Normal 09/20/20 23:30 Respiratory Pattern Normal 09/20/20 23:30 Blood Pressure 105/63 09/21/20 07:06 Blood Pressure Mean 91 09/20/20 11:31 Blood Pressure Position Supine 09/20/20 09:13 Pulse Oximetry 97 09/21/20 07:06 Oxygen Delivery Method Room Air 09/21/20 07:06 Oxygen Flow Rate 0 09/21/20 07:06 Pain Level 1 09/21/20 07:06 Comment 09/20/20 23:14 Intake & Output 09/20/20 09/21/20 09/21/20 18:59 06:59 18:59 Intake Total 2164.3 / 3115.967 951.667 / 3115.967 Output Total 200 / 1550 1350 / 1550 500 / 500 Balance 1964.3 / 1565.967 -398.333 / 1565.967 -500 / -500 Weight 98.43 kg Intake: IV 1924.3 / 2875.967 951.667 / 2875.967 Oral 240 / 240 Output: Urine 200 / 1550 1350 / 1550 500 / 500 Other: Urine Color Yellow Yellow Yellow Urine Appearance Clear Clear Emesis Description None Voiding Methods Toilet Data Completed and Pending Labs on day of discharge: Labs from last 24 hours 09/20/20 09/20/20 09/20/20 12:00 10:56 09:40 WBC RBC Hgb Hct MCV MCH MCHC RDW Plt Count MPV Immature Gran % Neutrophils % Lymphocytes % Monocytes % Eosinophils % Basophils % Nucleated RBC % Absolute Neutrophils Absolute Lymphocytes Absolute Monocytes Absolute Eosinophils Absolute Basophils PT INR VBG Lactate Sodium Potassium Chloride Carbon Dioxide Anion Gap BUN Creatinine Estimated GFR/1.73 m2 Glucose Calcium Total Bilirubin AST ALT Alkaline Phosphatase Total Protein Albumin Lipase Urine Color Yellow Yellow Urine Clarity Clear Clear Urine pH 5.0 5.5 Ur Specific Cherry 1.010 >= 1.030 H Urine Protein Negative Negative Urine Ketones Negative Negative Urine Blood Trace-intact H Trace-intact H Urine Nitrite Negative Negative Urine Bilirubin Negative Negative Urine Urobilinogen 0.2 0.2 Ur Leukocyte Esterase Negative Negative Urine RBC 0-2 5-10 H Urine WBC 5-10 >50 H Ur Epithelial Cells Few Moderate Urine Crystals Negative Negative Urine Bacteria Moderate Many Urine Casts Negative Negative Urine Mucus Heavy Heavy Urine Other Negative Negative Ur Culture Indicated? Yes No/sq. contamination Urine Glucose Negative Negative SARS-CoV-2 (PCR) Negative Nasopharyn COVID-19 PCR Not Applicable Ref Test Perform Site [facility] lab 09/20/20 09/20/20 09/20/20 09:20 09:20 09:20 WBC 9.20 RBC 5.14 Hgb 13.6 Hct 43.1 MCV 83.9 MCH 26.5 L MCHC 31.6 L RDW 13.5 Plt Count 295 MPV 10.8 Immature Gran % 0.4 Neutrophils % 62.8 Lymphocytes % 27.3 Monocytes % 7.0 Eosinophils % 2.2 Basophils % 0.3 Nucleated RBC % 0 Absolute Neutrophils 5.78 Absolute Lymphocytes 2.51 Absolute Monocytes 0.64 Absolute Eosinophils 0.20 Absolute Basophils 0.03 PT 9.9 INR 1.0 VBG Lactate 1.3 Sodium Potassium Chloride Carbon Dioxide Anion Gap BUN Creatinine Estimated GFR/1.73 m2 Glucose Calcium Total Bilirubin AST ALT Alkaline Phosphatase Total Protein Albumin Lipase Urine Color Urine Clarity Urine pH Ur Specific Cherry Urine Protein Urine Ketones Urine Blood Urine Nitrite Urine Bilirubin Urine Urobilinogen Ur Leukocyte Esterase Urine RBC Urine WBC Ur Epithelial Cells Urine Crystals Urine Bacteria Urine Casts Urine Mucus Urine Other Ur Culture Indicated? Urine Glucose SARS-CoV-2 (PCR) Nasopharyn COVID-19 PCR Ref Test Perform Site 09/20/20 09:20 WBC RBC Hgb Hct MCV MCH MCHC RDW Plt Count MPV Immature Gran % Neutrophils % Lymphocytes % Monocytes % Eosinophils % Basophils % Nucleated RBC % Absolute Neutrophils Absolute Lymphocytes Absolute Monocytes Absolute Eosinophils Absolute Basophils PT INR VBG Lactate Sodium 137 Potassium 3.7 Chloride 104 Carbon Dioxide 24.5 Anion Gap 8.5 BUN 12 Creatinine 0.82 Estimated GFR/1.73 m2 >= 60.00 Glucose 116 H Calcium 8.8 Total Bilirubin 0.5 AST 16 ALT 30 Alkaline Phosphatase 64 Total Protein 8.0 Albumin 3.9 Lipase 62 Urine Color Urine Clarity Urine pH Ur Specific Cherry Urine Protein Urine Ketones Urine Blood Urine Nitrite Urine Bilirubin Urine Urobilinogen Ur Leukocyte Esterase Urine RBC Urine WBC Ur Epithelial Cells Urine Crystals Urine Bacteria Urine Casts Urine Mucus Urine Other Ur Culture Indicated? Urine Glucose SARS-CoV-2 (PCR) Nasopharyn COVID-19 PCR Ref Test Perform Site 09/20/20 10:56 Urine - Reflex from Urine Culture - Pending Preliminary micro results at discharge 09/20/20 10:56 Urine Culture - Pending Urine - Reflex from [facility] Medical History (Updated 09/21/20 @ 14:48 by Samantha Nascimento MD) Abdominal pain, epigastric Anemia Asthma PFT's 11/2009-normal Cardiomegaly (09/05/14) CXR-NORMAL ECHO 09/05/14 DR. WONG Depressive disorder GERD (gastroesophageal reflux disease) Hyperlipidemia Increased BMI Irregular periods (07/23/90) Rosacea Vitamin D deficiency (08/28/14) Family History Mother Essential hypertension Heart disease A fib Neoplasm SKIN/FACE Father Essential hypertension Heart disease Aortic stenosis Hyperlipidemia COPD (chronic obstructive pulmonary disease) Sister Diabetes Gestational diabetes Asthma Mild Brother Asthma Childhood Grandfather Heart disease Grandfather Heart disease Stroke Grandmother Essential hypertension Asthma Grandmother Heart disease Hyperlipidemia Brother No problems noted. 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: Yes Pets and animals: cat(s) Duration: 15-30 minutes/day Frequency: 3-4 times per week Carmencita/Yazidi: Taoist Special carmencita needs: No Seatbelt use: always Do you feel safe at home: Yes Do you feel safe in your relationship?: Yes Documented by User: Kylie Vidal DO 09/22/20 21:21 Discharge Plan Disposition Patient Disposition: HOME Condition: Good Discharge Details Reason For Visit: INCARCERTATED UMBILICAL HERNIA Admit Date/Time: 09/20/20 15:59 Admit Provider: Kylie Vidal Attending Provider: Kylie Vidal Primary Care Provider: Anne Akers Hospital Course Hospital Course: 50 y/o female presented to the ER with nausea for a couple days and woke up the morning of 09/20 with severe abdominal pain. It was found on CT scan she had an incarcerated umbilical hernia with bowel loop. She was taken to the OR for an open umbilical hernia repair with mesh. She was admitted to med/surg for pain control and to ensure she tolerated a soft diet prior to d/c. Her pain was well controlled over night. Figueroa was d/c and she was able to urinate without difficulty. Reviewed and discussed signs and symptoms of infection to include fevers, chills, sweats, redness, soreness or swelling in the area, new onset pain or new onset/change in drainage. Patient verbalized understanding and will call this office, their PCP or go to the ER if any of these symptoms occur. D/C home and will schedule a follow up in the office in [address] Vidal. Home Meds and New Rx's Prescriptions: New acetaminophen [Mapap Extra Strength] 500 mg Tablet 1,000 mg PO Q6H PRN (Reason: fever or pain) Qty: 30 RF: 0 docusate sodium [Colace] 100 mg Capsule 100 mg PO BID Qty: 30 RF: 0 oxycodone 5 mg Tablet 5 mg PO Q4H PRN PRNQty: 14 RF: 0 Continued magnesium oxide 500 MG capsule 500 mg PO DAILY RF: 0 budesonide-formoterol [Symbicort] 160-4.5 mcg/actuation HFA aerosol inhaler 2 puff Inhalation BID Qty: 1 RF: 6 cholecalciferol (vitamin D3) 1,000 UNITS tablet 2,000 units PO DAILY RF: 0 Discharge Instructions Instructions: Umbilical Hernia (DC) Additional Instructions: No lifting pushing or pulling >10#. No strenuous bending or twisting for the next 6 weeks. She can return to work, while following these instructions starting Thursday, 2020. For pain control please take tylenol 650 mg x 6-8 hours and/or Ibuprofen 600mg x 6-8 hours. You may also use ice pack over your surgical site for pain control. No driving for 5 days OK to shower. No bathe/host tube Inc spirometry 10/ hour while awake. I do want you up walking 5-6 times per day to prevent pneumonia and blood clots. no restrictions on diet Pain medication and anesthesia can make you very constipated, but I do not want you straining to move your bowels. If you are experiencing constipation take some milk of magnesia magnesia Stand Alone Forms: Nursing Discharge Form Referrals: Kylie Vidal DO [OSTEOPATHIC DOCTOR] - 10/04/20 2:00 pm Activity:: Activity as Tolerated Equipment/Supplies:: No Equipment Needed Diet:: As Tolerated Discharge Orders Discharge Orders: Discharge Order (Routine); Ordered 09/21/20 Ordered By: Samantha Nascimento Discharge Data Discharge Date/Time-TO BE ENTERED AT DEPARTURE: 09/21/20 16:50 [facility] Medical History (Updated 09/21/20 @ 14:48 by Samantha Nascimento MD) Abdominal pain, epigastric Anemia Asthma PFT's 11/2009-normal Cardiomegaly (09/05/14) CXR-NORMAL ECHO 09/05/14 DR. WONG Depressive disorder GERD (gastroesophageal reflux disease) Hyperlipidemia Increased BMI Irregular periods (07/23/90) Rosacea Vitamin D deficiency (08/28/14) Family History Mother Essential hypertension Heart disease A fib Neoplasm SKIN/FACE Father Essential hypertension Heart disease Aortic stenosis Hyperlipidemia COPD (chronic obstructive pulmonary disease) Sister Diabetes Gestational diabetes Asthma Mild Brother Asthma Childhood Grandfather Heart disease Grandfather Heart disease Stroke Grandmother Essential hypertension Asthma Grandmother Heart disease Hyperlipidemia Brother No problems noted. 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: Yes Pets and animals: cat(s) Duration: 15-30 minutes/day Frequency: 3-4 times per week Carmencita/Yazidi: Taoist Special carmencita needs: No Seatbelt use: always Do you feel safe at home: Yes Do you feel safe in your relationship?: Yes Documented by User: Samantha Nascimento MD 09/21/20 14:53 Discharge Plan Disposition Patient Disposition: HOME Condition: Good Discharge Details Reason For Visit: INCARCERTATED UMBILICAL HERNIA Admit Date/Time: 09/20/20 15:59 Admit Provider: Kylie Vidal Attending Provider: Kylie Vidal Primary Care Provider: Anne Akers Hospital Course Hospital Course: 50 y/o female presented to the ER with nausea for a couple days and woke up the morning of 09/20 with severe abdominal pain. It was found on CT scan she had an incarcerated umbilical hernia with bowel loop. She was taken to the OR for an open umbilical hernia repair with mesh. She was admitted to med/surg for pain control and to ensure she tolerated a soft diet prior to d/c. Her pain was well controlled over night. Figueroa was d/c and she was able to urinate without difficulty. Reviewed and discussed signs and symptoms of infection to include fevers, chills, sweats, redness, soreness or swelling in the area, new onset pain or new onset/change in drainage. Patient verbalized understanding and will call this office, their PCP or go to the ER if any of these symptoms occur. D/C home and will schedule a follow up in the office in [address] Vidal. Home Meds and New Rx's Prescriptions: New acetaminophen [Mapap Extra Strength] 500 mg Tablet 1,000 mg PO Q6H PRN (Reason: fever or pain) Qty: 30 RF: 0 docusate sodium [Colace] 100 mg Capsule 100 mg PO BID Qty: 30 RF: 0 oxycodone 5 mg Tablet 5 mg PO Q4H PRN PRNQty: 14 RF: 0 Continued magnesium oxide 500 MG capsule 500 mg PO DAILY RF: 0 budesonide-formoterol [Symbicort] 160-4.5 mcg/actuation HFA aerosol inhaler 2 puff Inhalation BID Qty: 1 RF: 6 cholecalciferol (vitamin D3) 1,000 UNITS tablet 2,000 units PO DAILY RF: 0 Discharge Instructions Instructions: Umbilical Hernia (DC) Additional Instructions: No lifting pushing or pulling >10#. No strenuous bending or twisting for the next 6 weeks. She can return to work, while following these instructions starting Thursday, 2020. For pain control please take tylenol 650 mg x 6-8 hours and/or Ibuprofen 600mg x 6-8 hours. You may also use ice pack over your surgical site for pain control. No driving for 5 days OK to shower. No bathe/host tube Inc spirometry 10/ hour while awake. I do want you up walking 5-6 times per day to prevent pneumonia and blood clots. no restrictions on diet Pain medication and anesthesia can make you very constipated, but I do not want you straining to move your bowels. If you are experiencing constipation take some milk of magnesia magnesia Stand Alone Forms: Nursing Discharge Form Referrals: Kylie Vidal DO [OSTEOPATHIC DOCTOR] - 10/04/20 2:00 pm Activity:: Activity as Tolerated Equipment/Supplies:: No Equipment Needed Diet:: As Tolerated Discharge Orders Discharge Orders: Discharge Order (Routine); Ordered 09/21/20 Ordered By: Samantha Nascimento Discharge Data Discharge Date/Time-TO BE ENTERED AT DEPARTURE: 09/21/20 16:50 DS: Summary Time Spent with Patient providing and/or coordinating discharge services: Greater than 30 minutes Status at Discharge Functional status at discharge: independent ambulation Overall status at discharge: patient is back to baseline Mental Status: mental status grossly normal Speech and Movement: speech and movement normal Mood: congruent mood Affect: normal affect Exam Resp Effort & Inspection: normal respiratory effort GI Inspection: incision (c/d/i) Palpation: soft Auscultation: normal bowel sounds Psych Mental Status: mental status grossly normal Speech and Movement: speech and movement normal Mood: congruent mood Affect: normal affect [facility] Medical History (Updated 09/21/20 @ 14:48 by Samantha Nascimento MD) Abdominal pain, epigastric Anemia Asthma PFT's 11/2009-normal Cardiomegaly (09/05/14) CXR-NORMAL ECHO 09/05/14 DR. WONG Depressive disorder GERD (gastroesophageal reflux disease) Hyperlipidemia Increased BMI Irregular periods (07/23/90) Rosacea Vitamin D deficiency (08/28/14) Family History Mother Essential hypertension Heart disease A fib Neoplasm SKIN/FACE Father Essential hypertension Heart disease Aortic stenosis Hyperlipidemia COPD (chronic obstructive pulmonary disease) Sister Diabetes Gestational diabetes Asthma Mild Brother Asthma Childhood Grandfather Heart disease Grandfather Heart disease Stroke Grandmother Essential hypertension Asthma Grandmother Heart disease Hyperlipidemia Brother No problems noted. 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
--- NOTE | 2020-09-21 15:50 | CHAPLAIN ---
Alondra was resting in bed when I visited. She was pleasant and thanked me for visiting. She's been in touch with her and family members by phone, and seems to be comfortable being here.
== END 2020-09-21 16:50 | disposition home or self-care (01) | DRG 355 ==
LOC: ER 11:58 → SUR 12:00 → MS 16:55
PROVIDERS: Admitting Provider Surgery; Emergency Provider Physician Assistant; Visit Provider Surgery
PROC: 0WUF0JZ Supplement Abdominal Wall with Synthetic Substitute, Open Approach (ICD-10-PCS; CPT 49587; principal; 2020-09-20 13:00)
DX: K42.0 Umbilical hernia with obstruction, without gangrene (principal); K21.9 Gastro-esophageal reflux disease without esophagitis; E78.5 Hyperlipidemia, unspecified; J45.909 Unspecified asthma, uncomplicated; E55.9 Vitamin D deficiency, unspecified; D64.9 Anemia, unspecified; L71.9 Rosacea, unspecified
CPT/HCPCS: 49587; 36415; 76942; 80053; 81025; 83690; 94640; 96361; 96374; 96375; 96376; 99222; 99232; 99285; J1650; NC; U0003; 74177; 81003; 81015; 83605; 85025; 85610; 87086; C1781; J1100; J1885; J2001; J2250; J2270; J2405; J2543; J3475; J3490

== ENCOUNTER 2020-11-02 10:28 | Outpatient (CLI) | payer OTHER, SELFPAY ==
[2020-11-03 18:04] LABS: COVID-19 RT-PCR UVMMC Result Negative (Negative)
== END 2020-11-02 10:29 | disposition home or self-care (01) ==
DX: Z20.822 Contact with and (suspected) exposure to COVID-19 (principal)
CPT/HCPCS: U0003

== ENCOUNTER 2020-11-19 09:59 | Outpatient (REF) | payer OTHER, SELFPAY ==
--- NOTE | 2020-11-19 09:00 | PAPFT_PTH ---
PATIENT: Alondra Sterling LOC: [facility] [id number] AGE/SX: 50/F ROOM: RE11/19/[address]: Anne Akers APRN : 1970 BED: DIS: 11/19/2020 SPEC #: [id number] RECD: 11/19/20 13:06 STATUS: CLYDE HICKMAN #: [id number] СЕРГЕЙ: 11/19/20 09:[address]: Anne Akers DEPT: [facility] Cytology RECD BY: Tess Ivy Tissues: 1 - CX/ENDOCX FOR PAP SMEARS Procedures: PAP THIN PREP/UVM Screening HPV DNA PROBE Comments: [id number]
== END 2020-11-19 10:00 | disposition home or self-care (01) ==
LOC: LBN 09:59
DX: Z12.4 Encounter for screening for malignant neoplasm of cervix (principal); Z11.51 Encounter for screening for human papillomavirus (HPV)
CPT/HCPCS: 88142; 87624

== ENCOUNTER 2021-09-03 00:50 | Outpatient (CLI) | payer OTHER, SELFPAY ==
--- NOTE | 2021-09-03 06:45 | DI.RAD_ITS ---
Exam(s) XR ANKLE LT 2V XR FOOT LT COMPLETE EXAM: XR ANKLE LT 2V CLINICAL HISTORY: ankle pain, swelling, without trauma,M25.572,M79.672 TECHNIQUE: COMPARISON: CR XR FOOT LT COMPLETE from 09/03/2021 FINDINGS: Three views of the foot and three views of the ankle were obtained. The ankle mortise is well mainta ined. There are minimal degenerative changes of the joints of the ankle and foot. Alignment of the foot appears within normal limits. No other bony or soft tissue abnormality seen. IMPRESSION: Minimal degenerative changes, otherwise unremarkable examination. RADIATION DOSE DELIVERED: Total DLP
== END 2021-09-03 01:10 ==
DX: M79.672 Pain in left foot (principal); M25.572 Pain in left ankle and joints of left foot; M19.072 Primary osteoarthritis, left ankle and foot
CPT/HCPCS: 73600; 73630

== ENCOUNTER 2023-01-29 03:02 | Outpatient (CLI) | payer OTHER, SELFPAY ==
[2023-01-29 08:14] LABS: Anion Gap 8.1 mmol/L (3-11); BUN 10 mg/dL (7-18); CO2 26.9 mmol/L (21.0-32.0); CREATININE 0.8 mg/dL (0.55-1.02); Calcium 8.5 mg/dL (8.5-10.1); Calculated LDL 162 mg/dL (<100); Chloride 106 mmol/L (98-107); Cholesterol 256 mg/dL (<200); Estimated GFR 89.71 (mL/min/1.73m2); Glucose 101 mg/dL (74-106); HDL Cholesterol 66 mg/dL (40-60); Potassium 3.9 mmol/L (3.5-5.1); Sodium 141 mmol/L (136-145); Triglyceride 140 mg/dL (<150)
[2023-01-30 10:41] LABS: HIV-1/2 Ag & Ab Screen Negative (Negative)
[2023-01-30 11:01] LABS: Hepatitis C Ab w Rflx HCV PCR Negative (Negative)
== END 2023-01-29 03:03 | disposition home or self-care (01) ==
LOC: LBO 03:02
PROVIDERS: PCP Nurse Practitioner Family; Visit Provider Nurse Practitioner Family
DX: Z13.1 Encounter for screening for diabetes mellitus (principal); Z13.220 Encounter for screening for lipoid disorders; Z11.4 Encounter for screening for human immunodeficiency virus [HIV]; Z11.59 Encounter for screening for other viral diseases
CPT/HCPCS: 36415; 80048; 80061; 86803; 87389

== ENCOUNTER 2023-08-25 03:26 | Emergency (ER) | payer OTHER, SELFPAY ==
--- NOTE | 2023-08-25 03:15 | RT.EKG_ITS ---
APPROVED REPORT Exam: Resting ECG Reason for Exam: chest tightness Patient Location: E HR:75 bpm ECG Measurements Heart Rate [address] [id number] P [id number] QRSd 90 QRS -26 QT 392 T 55 QTc 439 Conclusion Atrial fibrillation...V-rate 74- 77, irreg A-activity Ventricular premature complex...V complex w/ short R-R interval Physician: no stemi, sinus.
--- NOTE | 2023-08-25 03:30 | DI.RAD_ITS ---
Exam(s) XR PORTABLE CHEST AP EXAM: XR PORTABLE CHEST AP CLINICAL HISTORY: cough, sob TECHNIQUE: 2D digital imaging was performed of the chest. One image was obtained. An AP view was ob tained. COMPARISON: CR CHEST 2 VIEWS PA,LAT from 10/28/2016 FINDINGS: MEDIASTINUM: Normal. HEART: Unchanged cardiomediastinal silhouette. The heart is mildly enlarged. PULMONARY VASCULATURE: Normal. LUNGS: Clear. PLEURAL SPACE: No pleural effusion or pneumothorax. BONE:Within normal limits for the patient's age. OTHER FINDINGS:Normal. IMPRESSION: No acute pulmonary findings. DATA REPOSITORY: RADIATION DOSE DELIVERED:
[2023-08-25 03:34] VITALS: BP 133/89; PULSE 79; RESP 18; TEMP 36.5; O2SAT 98
--- NOTE | 2023-08-25 03:35 | W.ED.GENAD ---
Discharge Plan Disposition Patient Disposition: Home Condition: Good Discharge Details Clinical Impression: Asthma exacerbation Primary Care Provider: Charlie Garcia ED Provider: Jose Juan Duran Home Meds and New Rx's Prescriptions: New prednisone 50 mg tablet 50 mg PO DAILY Qty: 5 0RF No Action magnesium oxide 500 MG capsule 500 mg PO DAILY Patient Comments: 01/13/17 ran out. si budesonide-formoterol [Symbicort] 160-4.5 mcg/actuation HFA aerosol inhaler 2 puff Inhalation BID Qty: 1 6RF cholecalciferol (vitamin D3) 1,000 UNITS tablet 2,000 units PO DAILY Patient Comments: 01/13/17 she ran out. si Discharge Instructions Instructions: Asthma (ED) Additional Instructions: At this time you have an asthma exacerbation. Please take the prednisone as directed. Has been sent to your pharmacy on file. Please continue to take your inhaler, 2 puffs every 12 hours. If you notice any worsening of your symptoms, or any new symptoms such as vomiting, diarrhea, fever, chills, shortness of breath, chest pain, numbness, weakness, or fainting , please return immediately to the emergency department for reevaluation. Please follow up with your primary care provider as soon as possible for reassessment and reevaluation. As always, it was a pleasure participating in your medical care today. Referrals: Charlie Garcia, AFFILIATE MARKETING COORDINATOR [Primary Care Provider] - Medical Decision Making 53-year-old female with a past medical history of asthma presents today for mild shortness of breath. The patient states that she ran out of her inhaler over the last month or so, and has since had a very mild cough with mild wheeze and shortness of breath. She denies exertional dyspnea. She denies any chest pain of significance. She denies any fever or chills. No history of [place]. No history of cardiac disease. No other complaints at this time. Exam demonstrates a mild wheeze in the right lower lung field. No other abnormalities. Symptoms appear consistent with mild asthma exacerbation. Will give prednisone, Symbicort, breathing treatment, get an x-ray to rule out pneumonia, monitor closely and reassess. EKG shows no evidence of STEMI 4:26 AM On reassessment after nebulizer treatment the patient's wheezing feels completely resolved. She feels much better. Vital signs stable. No hypoxemia. Patient will be given Symbicort inhaler for home. Patient was given prednisone here, and a prescription for home use. Discussed red flags which return. Diagnosis asthma exacerbation. I have extensively reviewed the treatment plan and discharge instructions with the patient. I have addressed all patient concerns at this time. The patient was made aware of what symptoms to monitor for that would warrant a return to the emergency department. Discussed the plan with the patient, they demonstrate verbal understanding and agreement with our assessment and plan at this time. The documentation in this chart was dictated using [employer] dictation software. Please excuse any dictation errors. FINDINGS: Lungs: No focal consolidation seen. Pleural spaces: No large pleural effusion seen. Heart/Mediastinum: Mildly enlarged cardiac silhouette. Bones/joints: Grossly unremarkable. IMPRESSION: Mildly enlarged cardiac silhouette. Dictated and Authenticated by: Gisele Joya MD. HPI General Date/Time Provider Initiated Documentation: 08/25/23 03:27. HPI Narrative: 53-year-old female with a past medical history of asthma presents today for mild shortness of breath. The patient states that she ran out of her inhaler over the last month or so, and has since had a very mild cough with mild wheeze and shortness of breath. She denies exertional dyspnea. She denies any chest pain of significance. She denies any fever or chills. No history of TX. No history of cardiac disease. No other complaints at this time. Related Data Home Medications Medication Instructions Recorded Confirmed cholecalciferol (vitamin D3) 25 2,000 units PO DAILY 07/11/15 08/25/23 mcg (1,000 unit) tablet magnesium oxide 500 mg capsule 500 mg PO DAILY 12/20/15 08/25/23 budesonide-formoterol HFA 160 2 puff inhalation BID ##1 08/21/23 08/25/23 mcg-4.5 mcg/actuation aerosol inhaler (Symbicort) prednisone 50 mg tablet 50 mg PO DAILY #5 tabs 08/25/23 Previous Rx's Medication Instructions Recorded budesonide-formoterol HFA 160 2 puff inhalation BID ##1 08/21/23 mcg-4.5 mcg/actuation aerosol inhaler (Symbicort) prednisone 50 mg tablet 50 mg PO DAILY #5 tabs 08/25/23 Allergies Allergy/AdvReac Type Severity Reaction Status Date / Time DUST Allergy Unknown Uncoded 12/22/22 13:07 POLLEN EXTRACTS Allergy Unknown Uncoded 12/22/22 13:07 General BRISEYDA: 3 Review of Systems All systems reviewed & are unremarkable except as noted in HPI and below PFSH All Active Problems (Updated 08/25/23 @ 04:23 by Jose Juan Duran DO) Asthma exacerbation (Acute) Morbid obesity with BMI of 45.0-49.9, adult (Chronic) GERD (gastroesophageal reflux disease) (Chronic) Medical History Foot pain, left Anemia Vitamin D deficiency (08/28/14) Rosacea Irregular periods (07/23/90) Depressive disorder In remission Cardiomegaly (09/05/14) CXR-NORMAL ECHO 09/05/14 DR. WONG Asthma PFT's 11/2009-normal Surgical History Umbilical hernia, incarcerated Surgical Repair w/mesh 09/20/20 Family History Mother Essential hypertension Heart disease A fib Neoplasm SKIN/FACE Father Essential hypertension Heart disease Aortic stenosis Hyperlipidemia COPD (chronic obstructive pulmonary disease) Sister Diabetes Gestational diabetes Asthma Mild SCAD (short-chain acyl-CoA dehydrogenase deficiency) Brother Asthma Childhood Grandfather Heart disease Grandfather Heart disease Stroke Grandmother Essential hypertension Asthma Grandmother Heart disease Hyperlipidemia Son Depression Daughter Depression Asthma Social History Smoking/Tobacco Use Status: Never Second Hand Exposure: Yes Smoking risk assessment performed?: Yes Alcohol Intake: current Alcohol Intake frequency: holidays/special occasions only Alcohol type: beer and hard liquor Drug use: Never Substance use type: does not use Caregiver/Support person: No Household members: spouse and children Housing: house Communication Needs: None Do you need help understanding health information?: Never 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 [employer] Pets and animals: Yes Pets and animals: cat(s) Sexually active: Yes Do you think of yourself as: straight/heterosexual Current gender identity: female What is your relationship status?: How often do you talk on the phone with friends or family?: once per week How often do you get together with friends or relatives?: decline to answer How often do you attend scientologist or religion services?: 4 or more times per year Do you belong to any clubs or organized social groups?: no Panel score (0-1 are the most socially isolated patients): 2 What type of physical activity do you participate in: walking Duration: 60-90 minutes/day Frequency: daily Carmencita/Confucianism: Yazidism Special carmencita needs: No Seatbelt use: always Helmet use: Yes Helmet use: always Drive intox or ride w/intox 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 3.ENT: Atraumatic external nose and ears. Moist MM. Neck: Symmetric, trachea midline, No thyromegaly. 4.CVS: +S1/S2, No murmurs or gallops. Peripheral pulses 2+ and equal in all extremities. Brisk capillary refill in all extremities. 5.RESP: Unlabored respiratory effort. Clear to auscultation bilaterally. No rales or rhonchi, the patient does have a mild right sided lower lung wheeze. 6.GI: Soft, Nontender/Nondistended, No hepatosplenomegaly. No guarding or rebound. 7.MSK: Normocephalic/Atraumatic, Extremities w/o deformity or ttp No cyanosis or clubbing, Normal movement of all extremities 8.Skin: Warm, Dry. No rashes or lesions. 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 Sensation grossly intact, no focal neurologic deficits. 10.Psych: (AAO) x3. Appropriate mood and affect
[2023-08-25 03:39] VITALS: BP 133/89; PULSE 84; RESP 22; TEMP 36.6; O2SAT 97
[2023-08-25] MEDS: predniSONE 20 MG TAB 60 MG PO (03:52)
[2023-08-25] MEDS: Albuterol/Ipratropium 3 ML UPD VIAL UPD (03:52)
[2023-08-25] MEDS: Budesonide/Formoterol 160/4.5 6 GM 60 PUFF INH IH (04:00)
[2023-08-25] MEDS: Inhaler, Assist Device 1 EACH MC (04:01)
[2023-08-25 04:25] VITALS: PULSE 75; RESP 18; O2SAT 98
--- NOTE | 2023-08-25 05:42 | DI.VRAD_ITS ---
PROCEDURE INFORMATION: Exam: XR Chest Exam date and time: 08/25/2023 3:52 AM Age: 53 years old Clinical indication: Cough and shortness of breath; Patient HX: Cough, SOB TECHNIQUE: Imaging protocol: Radiologic exam of the chest. Views: 1 view. COMPARISON: CR CHEST 2 VIEWS PA,LAT 10/28/2016 6:27 PM FINDINGS: Lungs: No focal consolidation seen. Pleural spaces: No large pleural effusion seen. Heart/Mediastinum: Mildly enlarged cardiac silhouette. Bones/joints: Grossly unremarkable. IMPRESSION: Mildly enlarged cardiac silhouette. Dictated and Authenticated by: Gisele Joya MD. Ordering:SUNNY Manzano MD
== END 2023-08-25 04:37 | disposition home or self-care (01) ==
PROVIDERS: Emergency Provider Student in an Organized Health Care Education/Training Program; PCP Nurse Practitioner Family
DX: J45.901 Unspecified asthma with (acute) exacerbation (principal)
CPT/HCPCS: 93005; 94640; 99284; 71045; 93010; J7512; J7620

== ENCOUNTER → 2024-02-01 02:08 | Outpatient (CLI) | payer OTHER, SELFPAY ==
--- NOTE | 2024-02-01 06:30 | DI.MAMMO_ITS ---
Exam(s) MAMMO SCREENING EXAM: MAMMO SCREENING CLINICAL HISTORY: screening,z12.39. TECHNIQUE: Bilateral full field digital CC and MLO mammographic images were obtained with 3D tomosyn thesis and utilizing computer aided detection (CAD). COMPARISON: Prior mammograms were reviewed. Most recent was 2014. FINDINGS: There has been no significant change in the appearance and distribution of the fibroglandular tissue. There are no CAD designations. There are no new spiculated masses nor malignant appearing microcalcification groups. There is no significant architectural distortion nor skin thickening-retraction. IMPRESSION: No radiographic evidence of malignancy. BI-RADS Category 1 - Negative Breast Density - Category B - Scattered areas of fibroglandular density Breast density Category C or D implies that the patient has dense breast tissue. Dense breast tissue can make it harder to find cancer on a mammogram. Dense breast tissue is also associated with an incr eased risk of breast cancer. This information about the result of the mammogram report was provided to the patient to raise their awareness. Use this report when you speak with the patient about their risks for breast cancer, which includes their family history. At that time, you may recommend additional screening tests (Ultrasoun d or MRI) as these tests may add significant information. A negative radiographic report should not delay biopsy if a dominant or clinically suspicious mass is present. Up to ten percent of cancers are not identified on mammography. A negative report may reinforce clinical impression. Adenosis and dense breasts may obscure an underlying neoplasm. False positive reports average 6 to 10%. Patient will receive a letter notifying them of these results.
== END ==
PROVIDERS: PCP Nurse Practitioner Family; Visit Provider Nurse Practitioner Family
DX: Z12.31 Encounter for screening mammogram for malignant neoplasm of breast (principal)
CPT/HCPCS: 77063; 77067